=== PATIENT | female | born 1985 | race Two or more races ===

== ENCOUNTER 2016-11-29 20:58 | Observation (INO) | payer SELFPAY ==
--- NOTE | 2016-12-01 22:10 | GHP ---
[f rep st] HISTORY AND PHYSICAL DATE OF ADMISSION: 11/29/2016 ADMITTING DIAGNOSIS: 1. Intrauterine at 36 and 6/7 weeks. 2. Decreased movement. 3. Non-reassuring testing. HISTORY OF PRESENT ILLNESS: The patient is a 31-year-old, 1, para 0, at 36 and 6 weeks with an estimated due date 12/23/2016 by last menstrual period and confirmed by a first-trimester ultrasound. The patient was at her routine visit today in the office of [facility] and was complaining of decreased movement. She was put on the NST and a nonreactive strip was noted. The patient then underwent a biophysical profile and got a 4/8. Patient was sent to labor and delivery for prolonged monitoring. The patient states there is good movement here on the deck but notes that movement is different than what it was a few weeks ago. Denies any leakage of fluid or vaginal bleeding. Denies any belly pain, cramping or contractions. The patient has care at [facility] and is a late transfer in 3rd trimester. She just moved here from [place]. is uncomplicated. The patient did receive Tdap. GBS culture is pending at this time. PAST OBSTETRICAL HISTORY: Patient is a primigravida. GYNECOLOGIC HISTORY: Age of menarche 12. Cycles every 28 days, 5-6 days. The patient denies any history of abnormal Pap smears or any exposure to sexually transmitted diseases. GC, chlamydia cultures were negative in November 2016. PAST MEDICAL HISTORY: 1. Childhood asthma. 2. Migraine headaches. PAST SURGICAL HISTORY: None. FAMILY HISTORY: Noncontributory. SOCIAL HISTORY: The patient is single. She denies any alcohol, tobacco, or illicit drug use. HOME MEDS: Include vitamins, Benadryl. ALLERGIES: No known allergies. REVIEW OF SYSTEMS: A 10-point review of systems is negative. Pertinent positives noted in History of Present Illness. LABS: I do not have her record here so labs are unavailable at this time. PHYSICAL EXAMINATION: VITAL SIGNS: On admission, vital signs are stable. Patient is afebrile. GENERAL: Well-nourished well-developed female. Alert, oriented x3. No apparent distress. CARDIOVASCULAR: Regular rate and rhythm. LUNGS: Clear to auscultation bilaterally. ABDOMEN: Gravid, soft, nontender, nondistended. EXTREMITIES: Normal to inspection without calf tenderness or edema. PELVIC: Deferred. heart tones are Category 1 tracing with a baseline of 140 beats per minute. Positive accelerations. No decelerations. Moderate variability. On [place], there was noted to be some irritability. No contractions. ASSESSMENT/PLAN: Patient is a 31-year-old, 1, para 0, at 36 and 6 weeks who presents with decreased movement, non-reassuring testing. 1. Admit to Labor and Delivery for observation. 2. Prolonged monitoring. NST here is reactive, Category 1 tracing. 3. Will repeat biophysical profile in a.m. 12/02 along with an RAZ fluid check. 4. Ambien as needed for sleep. 5. GBS culture is pending. /[id number]/MODL MTDD
== END 2016-11-29 21:59 | disposition home or self-care (01) ==
LOC: FLD 20:58
PROVIDERS: ADMIT Obstetrics & Gynecology; ATTEND Obstetrics & Gynecology
DX: O36.8130 Decreased fetal movements, third trimester, not applicable or unspecified (principal); Z3A.36 36 weeks gestation of pregnancy
CPT/HCPCS: G0378

== ENCOUNTER 2016-12-01 15:05 | Observation (INO) | payer SELFPAY ==
[2016-12-01] MEDS ORDERED: LR 1,000 ML IV ONE (15:30)
[2016-12-01] MEDS ORDERED: LR 1,000 ML IV SCH (16:30)
[2016-12-01] MEDS ORDERED: ZOLPIDEM TARTRATE 5 MG TAB PO ONE (21:25)
--- NOTE | 2016-12-01 21:43 | OBDEL ---
Data Ford ADILENE: 12/23/16 Gestational Age: 36 week(s) and 6 day(s)
--- NOTE | 2016-12-02 14:13 | GHP ---
[f rep st] HISTORY AND PHYSICAL DATE OF ADMISSION: 12/01/2016 The patient is discharged after an observation admission. SUMMARY OF HOSPITAL ADMISSION: The patient is a 31-year-old, G1, P0, at 37 weeks gestation with an estimated due date of 12/23; who was observed on labor and delivery due to decreased movement. The patient has had her care in [facility] throughout the and has been uncomplicated . She moved to [place] 3 weeks ago and began care with [facility]. The patient has notic ed decreased movement and was evaluated on 11/29 and felt to be reassuring; however, continues to have decreased movement and was seen at the office on 12/01 with a reactive NST. However, she was sent to labor and delivery for prolonged monitoring. The patient had a reassuring bedside biophysical profile in the office on 12/01; however, a formal biophysical profile [facility] for reassurance. The continuous monitoring for several hours on 12/01 showed c ategory 1 tracing with no signs of deceleration. The patient has not felt any contractions and not had any vaginal bleeding. The patient does state she feels movement several times a day; however, n ot the recommended 10 times in 2 hours. The patient has had no leakage of fluid or abdominal tender ness. The patient reports that she does not hydrate much and has not increased hydration since her move from [facility]. She reports possibly 1 L of fluids a day. CARE: The patient has only recently been seen by [facility] and currently recor ds are not available. The patient has reported that all laboratory testing has been normal. PAST MEDICAL HISTORY: The patient denies any chronic medical illnesses. PAST SURGICAL HISTORY: Patient had breast augmentation in 2010, but had difficulty with the implant s and had to have a revision and replacement in 2011. These were done in [facility]. ALLERGIES: The patient has anaphylactic reaction with respiratory distress with nonsteroidal anti-i nflammatory medications. CURRENT MEDICATIONS: None. The patient is advised to begin a vitamin. SOCIAL HISTORY: The patient has moved here to deliver here in [place], as her brother lives here. The patient is a nonsmoker. No alcohol or marijuana use. No IV drug abuse. PHYSICAL EXAMINATION: The patient was admitted for observation on 12/01. The patient has maintaine d normal blood pressures and has been afebrile throughout the hospital stay. See nursing documentat ion for full details. The patient was continuously monitored on 12/01 for many hours and showed category 1 tracing in the 130s with good variability and accelerations with no decelerations. Rare contractions were noted. The patient has had an NST this morning, that continues to show a reactive, reassuring pattern with no decelerations. The patient had a biophysical profile performed, which shows 8/ with great amnio tic fluid of 12.5 cm. ASSESSMENT AND PLAN: Intrauterine at 37 weeks gestation with decreased movement, bu t with all normal surveillance, the baby is reassuring. Possibly an effect due to dehydration in th e patient. Strongly suggest the patient to get at least 2 L, but even better to get 2.5 L a day, an d stressed fluids here at this altitude and dry climate. The patient is advised to follow up on Sun or Sunday for an NST if the baby continues to have less than 10 movements in 2 hours. If the b jayro is perceived to be moving better with increased hydration, then she can follow up at the end of next week. The patient understands the plan. The patient is discharged home on 12/02 to follow up at [facility]. /[id number]/MODL
== END 2016-12-02 14:30 | disposition home or self-care (01) ==
LOC: FLD 15:05
PROVIDERS: ADMIT Obstetrics & Gynecology; ATTEND Obstetrics & Gynecology
DX: O36.8130 Decreased fetal movements, third trimester, not applicable or unspecified (principal); Z3A.37 37 weeks gestation of pregnancy
CPT/HCPCS: G0378

== ENCOUNTER 2016-12-21 06:00 | Inpatient (IN) | payer SELFPAY ==
[2016-12-21] MEDS ORDERED: TERBUTALINE SULFATE 1 MG/ML VIAL IV PRN (07:24)
[2016-12-21] MEDS ORDERED: OXYTOCIN/RINGERS LACTATE 1,000 ML IV PRN (07:24)
[2016-12-21] MEDS ORDERED: OLIVE OIL 118 ML BTL MISC PRN (07:24)
[2016-12-21] MEDS ORDERED: EPSOM SALT 454 GM TP PRN (07:24)
[2016-12-21] MEDS ORDERED: LR 1,000 ML IV PRN (07:24)
[2016-12-21] MEDS ORDERED: LR 500 ML IV PRN (07:36)
[2016-12-21] MEDS ORDERED: OXYTOCIN/LR *STANDARD DOSE PROTOCOL IV SCH (08:00)
[2016-12-21] MEDS ORDERED: OXYTOCIN/RINGERS LACTATE 500 ML IV SCH (08:00)
[2016-12-21 08:17] LABS: % IMMATURE GRANULYOCYTES 0.3 % (0.0-1.1); ABSOLUTE IMMATURE GRANULOCYTES 0.03 10^3/uL (0.00-0.10); ADD DIFF? NO; ADD MORPH? NO; ADD SCAN? NO; ATYPICAL LYMPHOCYTE FLAG 10 (0-99); FRAGMENT RBC FLAG 0 (0-99); HEMATOCRIT 35.1 % (38.0-47.0); HEMOGLOBIN 11.9 g/dL (12.6-16.3); LEFT SHIFT FLG 0 (0-99); LIPEMIA HEMOLYSIS FLAG 90 (0-99); MEAN CELL HEMOGLOBIN 28.6 pg (27.9-34.1); MEAN CELL HEMOGLOBIN CONCENTR. 33.9 g/dL (32.4-36.7); MEAN CELL VOLUME 84.4 fL (81.5-99.8); MEAN PLATELET VOLUME 9.9 fL (8.7-11.7); PLATELET CLUMPS FLAG 10 (0-99); PLATELET COUNT 242 10^3/uL (150-400); RED BLOOD CELL COUNT 4.16 10^6/uL (4.18-5.33); RED CELL DISTRIBUTION WIDTH 13.2 % (11.5-15.2)
--- NOTE | 2016-12-21 10:37 | PDGENHP ---
History and Physical - Chief Complaint 31yo with IUP @ 39-5wks that presents to L&D for elective IOL - History of Present Illness 31yo with IUP @39-5wks that presents to L&D for elective IOL. She denies any contractions, LOF, VB. She reports +FM History Information - Allergies/Home Medication List Allergies/Adverse Reactions: NSAIDS (Non-Steroidal Anti-Inflamma Allergy (Verified 12/02/16 13:26) Wheezing I have personally reviewed and updated: family history, medical history, social history, surgical history - Past Medical History no pertinent PMH - Surgical History Reports: no pertinent surgical hx - Social History Smoking Status: Never smoked Alcohol Use: None Drug Use: None Review of Systems Review of Systems: ROS: 10pt was reviewed & negative except for what was stated in HPI & below Constitutional: Reports: no symptoms EENMT: Reports: no symptoms Cardiac: Reports: no symptoms Respiratory: Reports: no symptoms Gastrointestinal: Reports: no symptoms Genitourinary: Reports: no symptoms Muscolosketal: Reports: no symptoms Skin: Reports: no symptoms Neurological: Reports: no symptoms Physical Exam Physical Exam: Constitutional: no apparent distress, appears nourished Eyes: EOMI Ears, Nose, Mouth, Throat: moist mucous membranes, hearing normal, ears appear normal Cardiovascular: regular rate and rhythym, no murmur, rub, or gallop Respiratory: no respiratory distress, no rales or rhonchi Gastrointestinal: soft, non-tender abdomen Genitourinary: no bladder fullness Skin: warm, normal color Musculoskeletal: full muscle strength Neurologic: AAOx3 Psychiatric: interacting appropriately, not anxious Lab Data & Imaging Review 12/21/16 07:55 WBC 10.58 10^3/uL (3.80-9.50) H 12/21/16 07:55 RBC 4.16 10^6/uL (4.18-5.33) L 12/21/16 07:55 Hgb 11.9 g/dL (12.6-16.3) L 12/21/16 07:55 Hct 35.1 % (38.0-47.0) L 12/21/16 07:55 MCV 84.4 fL (81.5-99.8) 12/21/16 07:55 MCH 28.6 pg (27.9-34.1) 12/21/16 07:55 MCHC 33.9 g/dL (32.4-36.7) 12/21/16 07:55 RDW 13.2 % (11.5-15.2) 12/21/16 07:55 Plt Count 242 10^3/uL (150-400) 12/21/16 07:55 MPV 9.9 fL (8.7-11.7) 12/21/16 07:55 Neut % (Auto) 70.7 % (39.3-74.2) 12/21/16 07:55 Lymph % (Auto) 20.6 % (15.0-45.0) 12/21/16 07:55 [place] % (Auto) 7.5 % (4.5-13.0) 12/21/16 07:55 Eos % (Auto) 0.4 % (0.6-7.6) L 12/21/16 07:55 Baso % (Auto) 0.5 % (0.3-1.7) 12/21/16 07:55 Nucleat RBC Rel Count 0.0 % (0.0-0.2) 12/21/16 07:55 Absolute Neuts (auto) 7.49 10^3/uL (1.70-6.50) H 12/21/16 07:55 Absolute Lymphs (auto) 2.18 10^3/uL (1.00-3.00) 12/21/16 07:55 Absolute Monos (auto) 0.79 10^3/uL (0.30-0.80) 12/21/16 07:55 Absolute Eos (auto) 0.04 10^3/uL (0.03-0.40) 12/21/16 07:55 Absolute Basos (auto) 0.05 10^3/uL (0.02-0.10) 12/21/16 07:55 Absolute Nucleated RBC 0.00 10^3/uL (0-0.01) 12/21/16 07:55 Immature Gran % 0.3 % (0.0-1.1) 12/21/16 07:55 Immature Gran # 0.03 10^3/uL (0.00-0.10) 12/21/16 07:55 Patient ABO/Rh AB POSITIVE 12/21/16 07:55 Antibody Screen NEGATIVE 12/21/16 07:55 Assessment & Plan Assessment: [id number] with IUP@ 39-5wks GBS Neg Cat 1 FHR Tracing Elective IOL Plan: Admit to L&D pitocin/AROM pain management PRN anticipate
[2016-12-21] MEDS ORDERED: TERBUTALINE SULFATE 1 MG/ML VIAL ONE (12:25)
[2016-12-21] MEDS ORDERED: AMMONIA AROMATIC 1 EACH AMP IH ONE (12:25)
[2016-12-21] MEDS ORDERED: OXYTOCIN 10 UNIT/ML VIAL ONE (12:25)
[2016-12-21] MEDS ORDERED: LIDOCAINE 1% 300 MG/30 ML SDV ONE (12:25)
[2016-12-21] MEDS ORDERED: OLIVE OIL 118 ML BTL ONE (12:25)
[2016-12-21] MEDS ORDERED: MISOPROSTOL 200 MCG TAB ONE (12:26)
[2016-12-21] MEDS ORDERED: fentaNYL 100 MCG/2 ML INJ ONE (16:57)
[2016-12-21] MEDS ORDERED: fentaNYL 2MCG/ML/BUP 0.1% RTU 100 ML BAG EP ONE (16:58)
[2016-12-21] MEDS ORDERED: BUPIVACAINE 0.25% 30 ML SDV ONE (16:58)
[2016-12-21] MEDS ORDERED: PHENYLEPHRINE HCL 100 MCG/ML SYR ONE (16:58)
[2016-12-21] MEDS ORDERED: ONDANSETRON 4 MG/2 ML VIAL IVP PRN (18:12)
[2016-12-21] MEDS ORDERED: NALOXONE HCL 0.4 MG/ML INJ IVP PRN (18:12)
[2016-12-21] MEDS ORDERED: METOCLOPRAMIDE 10 MG/2 ML VIAL IVP PRN (18:12)
[2016-12-21] MEDS ORDERED: PHENYLEPHRINE HCL 100 MCG/ML SYR IVP PRN (18:12)
--- NOTE | 2016-12-21 18:13 | PREANESOB ---
Obstetric Pre-Anesthesia Info - General Info : 1 Para: 0 - Labor Status Indications for Labor Analgesia: Pain Control Labor Epidural: Proposed Anesthesia Allergies/Adverse Reactions: Allergy/AdvReac Type Severity Reaction Status Date / Time NSAIDS (Non-Steroidal Allergy Wheezing Verified 12/02/16 13:26 Anti-Inflamma Visit Medications: Generic Name Dose Route Start Last Admin Trade Name Freana lilia PRN Reason Stop Dose Admin Lactated Ringer's 1,000 mls @ 0 mls/hr 12/21/16 07:24 12/21/16 08:27 Lr IV 06/19/17 07:23 1,000 mls PRN PRN Administration SEE PROTOCOL CONDITIONS Protocol Per Protocol Oxytocin/Lactated Ringer's 1,000 mls @ 150 mls/hr 12/21/16 07:24 Pitocin 20 Units/Lr (Premix) IV PRN PRN Post- bleeding Lactated Ringer's 500 mls @ 500 mls/hr 12/21/16 07:36 Lr IV PRN PRN Maternal Hypotension Oxytocin 30 unit/ Lactated 503 mls @ 0 mls/hr 12/21/16 08:00 12/21/16 08:27 Ringer's IV 06/19/17 07:59 503 mls CONT JAMES Administration Protocol Per Protocol Lactated Ringer's 500 mls @ 0 mls/hr 12/21/16 18:30 Lr IV 06/19/17 18:29 CONT JAMES As Directed Magnesium Sulfate 454 gm 12/21/16 07:24 Epsom Salt TP 06/19/17 07:23 Q1H PRN perineal discomfort [place] Oil 118 ml 12/21/16 07:24 Sweet Oil MISC 06/19/17 07:23 ONCE PRN perineal massage Terbutaline Sulfate 0.25 mg 12/21/16 07:24 Brethine IV 06/19/17 07:23 ONCE PRN Tachysystole Discontinued Medications Generic Name Dose Route Start Last Admin Trade Name Freq PRN Reason Stop Dose Admin Ammonia (Aromatic Spirit) Confirm 12/21/16 12:25 Ammonia Aromatic Administered 12/21/16 12:26 Dose 1 each IH .STK-MED ONE Bupivacaine HCl Confirm 12/21/16 16:58 Sensorcaine 0.25% Sdv Administered 12/21/16 16:59 Dose 30 ml .ROUTE .STK-MED ONE Ephedrine Sulfate Confirm 12/21/16 12:25 Ephedrine Sulfate Administered 12/21/16 12:26 Dose 50 mg .ROUTE .STK-MED ONE Fentanyl Confirm 12/21/16 16:57 Sublimaze Administered 12/21/16 16:58 Dose 100 mcg .ROUTE .STK-MED ONE Fentanyl/Bupivacaine HCl Confirm 12/21/16 16:58 Fentanyl/Bupivacaine/Ns 2 Mcg/Ml 0.1% (Premix Administered 12/21/16 16:59 Dose 100 ml EP .STK-MED ONE Lidocaine HCl Confirm 12/21/16 12:25 Lidocaine Hcl 1% Administered 12/21/16 12:26 Dose 300 mg .ROUTE .STK-MED ONE Misoprostol Confirm 12/21/16 12:26 Cytotec Administered 12/21/16 12:27 Dose 800 mcg .ROUTE .STK-MED ONE [place] Oil Confirm 12/21/16 12:25 Sweet Oil Administered 12/21/16 12:26 Dose 118 ml .ROUTE .STK-MED ONE Oxytocin Confirm 12/21/16 12:25 Pitocin Administered 12/21/16 12:26 Dose 40 unit .ROUTE .STK-MED ONE Phenylephrine HCl Confirm 12/21/16 16:58 Neosynephrine Administered 12/21/16 16:59 Dose 1,000 mcg .ROUTE .STK-MED ONE Terbutaline Sulfate Confirm 12/21/16 12:25 Brethine Administered 12/21/16 12:26 Dose 1 mg .ROUTE .STK-MED ONE - Focused Exam Height/Weight (Nursing): Height 162 cm Weight 74.389 kg Labs: 12/21/16 07:55 Patient ABO/Rh AB POSITIVE 12/21/16 07:55
--- NOTE | 2016-12-21 18:14 | POSTANESTH ---
Post Anesthetic Evaluation Respiratory Status: Normal, Stable Level of Consciousness/Mental Status: Can Participate in Eval Pain Control: Adequate, Prn Tx Ordered Nausea/Vomiting Control: Adequate, Prn Tx Ordered Complications Possibly Related to Anesthesia: None Noted
--- NOTE | 2016-12-21 18:15 | PDANEPAE ---
ANE History of Present Illness 31 year old woman for labor epidural. Otherwise healthy. ANE Past Medical History - Cardiovascular History Hx Hypertension: No Hx Arrhythmias: No Hx Chest Pain: No Hx Coronary Artery / Peripheral Vascular Disease: No Hx CHF / Valvular Disease: No Hx Palpitations: No - Pulmonary History Hx COPD: No Hx Asthma/Reactive Airway Disease: No Hx Recent Upper Respiratory Infection: No Hx Oxygen in Use at Home: No Hx Sleep Apnea: No ANE Review of Systems Review of Systems: ANE Patient History - Allergies Allergies/Adverse Reactions: NSAIDS (Non-Steroidal Anti-Inflamma Allergy (Verified 12/02/16 13:26) Wheezing - Smoking Hx Smoking Status: Never smoked - Alcohol Use Alcohol Use: None ANE Labs/Vital Signs - Labs Result Diagrams: 12/21/16 07:55 - Vital Signs Height: 162 cm Weight: 74.389 kg ANE Physical Exam - Airway Mallampati Score: Class 1 Mouth exam: normal dental/mouth exam - Pulmonary Pulmonary: no respiratory distress - Cardiovascular Cardiovascular: regular rate and rhythym - ASA Status ASA Status: I ANE Anesthesia Plan Anesthesia Plan: epidural
[2016-12-21] MEDS ORDERED: LR 500 ML IV SCH (18:30)
[2016-12-21] MEDS ORDERED: fentaNYL 2MCG/ML/BUP 0.1% RTU 100 ML EP SCH (18:30)
[2016-12-21] MEDS ORDERED: LIDOCAINE 2% JELLY 5 ML TUBE TP ONE (21:06)
--- NOTE | 2016-12-21 21:21 | OBPROG ---
Labor Progress Note Assessment/Plan: Assessment: 31 y/o @ 39 weeks elective IOL. Plan: Good cervical progression now on pitocin. Will give lidocaine jelly to urethra to help discomfort from the manzano. Will re check 1- 2 hours. status is reassuring. 12/21/16 21:22 Subjective/Intrapartum Course: 12/21/16 21:17 Pt is feeling some discomfort in the urethra from her manzano today. She has some pelvic pressure. Objective: 12/21/16 07:55 Patient ABO/Rh AB POSITIVE 12/21/16 07:55 - SVE Dilation (cm): 7 Effacement (%): 90 Station: 0 Membranes: AROM Amniotic Fluid Color: Clear - Contraction Pattern Assessment Current Contraction Pattern: Regular (Q 2-3) - FHR Assessment Ford FHR (bpm): 130 FHR Pattern Variability: Moderate FHR Category: 1 Oxytocin Orders Assessment - Pre-Induction/Augmentation Assessment Gestational Age: 39 week(s) and 5 day(s) ICD10 Worksheet Patient Problems: Problems Problem Status Onset Decreased movement Acute
[2016-12-21] MEDS ORDERED: ACETAMINOPHEN 500 MG TAB PO PRN (22:06)
[2016-12-21] MEDS ORDERED: FAMOTIDINE 20 MG/NACL 50 ML IV ONE (22:08)
[2016-12-21] MEDS ORDERED: FAMOTIDINE 20 MG/2 ML SDV IVP ONE (22:15)
[2016-12-22] MEDS ORDERED: SIMETHICONE 80 MG TAB CHEW PO PRN (00:44)
[2016-12-22] MEDS ORDERED: HYDROCORTISONE 0.5% CREAM TP PRN (00:44)
--- NOTE | 2016-12-22 00:48 | OBDEL ---
Info Type: Vaginal Presentation at Delivery: Vertex L&D Analgesia/Anesthesia Type: Epidural GBS+: No Intrapartum Medications: Generic Name Dose Route Start Last Admin Trade Name Freq PRN Reason Stop Dose Admin Acetaminophen 1,000 mg 12/21/16 22:06 12/21/16 22:19 Tylenol PO 06/19/17 22:05 1,000 mg Q6HRS PRN Administration Pain, Mild/Fever, Can Take PO Lactated Ringer's 1,000 mls @ 0 mls/hr 12/21/16 07:24 12/21/16 08:27 Lr IV 06/19/17 07:23 1,000 mls PRN PRN Administration SEE PROTOCOL CONDITIONS Protocol Per Protocol Oxytocin 30 unit/ Lactated 503 mls @ 0 mls/hr 12/21/16 08:00 12/21/16 08:27 Ringer's IV 06/19/17 07:59 503 mls CONT JAMES Administration Protocol Per Protocol Discontinued Medications Generic Name Dose Route Start Last Admin Trade Name Freq PRN Reason Stop Dose Admin Famotidine 20 mg 12/21/16 22:15 12/21/16 22:19 Pepcid IVP 12/21/16 22:16 20 mg ONCE ONE Administration Lidocaine 1 tory 12/21/16 21:06 12/21/16 21:33 Lidocaine 2% Jelly TP 12/21/16 21:07 1 tory ONCE ONE Administration - Hospital Course Intrapartum: 12/21/16 21:17 Pt is feeling some discomfort in the urethra from her manzano today. She has some pelvic pressure. 12/22/16 00:45 pt progressed appropriately; complete and pushed for approx 1 hour; maternal temp noted 100.8 prior to delivery and 101 post delivery; abx initiated. Indications for Delivery: Elective Vaginal Delivery - Delivery Provider Delivery Physician/CNM: Marcella Hartman Proctoring Provider: Hilda Stock - Labor and Delivery Onset of Contractions Date: 12/21/16 Onset of Contractions Time: 15:17 Onset of Contractions Type: Induced Rupture of Membranes Date: 12/21/16 Rupture of Membranes Time: 15:17 Rupture of Membranes Type: Artificial Amniotic Fluid Color: Clear Dilation Complete Date: 12/21/16 Dilation Complete Time: 23:00 Placenta Delivery Date: 12/22/16 Placenta Delivery Time: 00:25 Total Hours of Labor: 9 Non-surgical Procedures: Amniotomy Vaginal Sponge Count Correct: Yes Vaginal Needle Count Correct: Yes Vaginal Sweep Performed: No EBL: 250 Delivery Events: None - Medications Labor Augmentation/Induction Methods Used: Pitocin Labor Augmentation/Induction Indication: Elective Tyler Data Ford Delivery Date: 12/22/16 Delivery Time: 00:15 ADILENE: 12/23/16 Gestational Age: 39 week(s) and 6 day(s) Sex of Infant: Female Score (1 Min): 8 Score (5 Min): 9 ICD10 Worksheet Patient Problems: Problems Problem Status Onset (spontaneous vaginal delivery) Acute Decreased movement Acute - ICD10 Problem Qualifiers (1) (spontaneous vaginal delivery)
[2016-12-22] MEDS: ceFAZolin 2 GM/DEXTROSE 100 ML IV SCH ×4 (01:07→21:11)
[2016-12-22] MEDS: HYDROCODONE/APAP 5/325 TAB PO PRN ×5 (03:11→21:11)
--- NOTE | 2016-12-22 09:07 | OBPP ---
Progress Note Assessment/Plan: Assessment: 1) s/p PPD #0.5 - pt is stable 2) Maternal fever - resolved, on abx 3) Anemia - pt is asymptomatic Plan: Continue routine pp care Pt is afebrile at this time Will start iron Plan for d/c home in am 12/2312/22/16 09:12 Subjective/ Course: Pt seen and examined. Doing well, she is sore. Relief with [place]. Pt is OOB, eleazar regular diet, voiding and passing flatus. No BM. Mod lochia. BF well so far. Objective: 12/21/16 07:55 Patient ABO/Rh AB POSITIVE 12/21/16 07:55 Temp Pulse Resp BP Pulse Ox 36.8 C 85 18 95/55 L 95 12/22/16 04:12/22/16 04:12/22/16 04:12/22/16 04:12/22/16 02:48 Uterine Position/Fundal Height: Umbilicus -2 Uterine Tone: Firm Physical Exam - Physical Exam Respiratory: lungs clear, normal breath sounds Cardiac/Chest: regular rate, rhythm Abdomen: normal bowel sounds, non-tender, soft, flatus (+) Extremities: non-tender, normal inspection Skin: normal color, warm/dry Neuro/Psych: alert, normal mood/affect, oriented x 3
[2016-12-22] MEDS: IRON POLYSAC/IRON HEME 28 MG TAB PO SCH ×2 (11:47→21:11)
[2016-12-22] MEDS: DOCUSATE SODIUM 100 MG CAP PO PRN ×2 (11:47→21:11)
[2016-12-22] MEDS ORDERED: FLU VACC QS 2017-18 (3YR+)/PF 0.5 ML SYR (FLUARIX QUAD) IM ONE (12:01)
[2016-12-22] MEDS ORDERED: MEASLES,MUMPS&RUBELLA VACC/PF 0.5 ML VIAL SC ONE (12:26)
[2016-12-23] MEDS: ceFAZolin 2 GM/DEXTROSE 100 ML IV SCH (01:03)
[2016-12-23] MEDS: HYDROCODONE/APAP 5/325 TAB PO PRN ×3 (05:01→09:40)
[2016-12-23] MEDS: IRON POLYSAC/IRON HEME 28 MG TAB PO SCH (08:43)
[2016-12-23] MEDS: DOCUSATE SODIUM 100 MG CAP PO PRN (08:43)
[2016-12-23 10:34] VITALS: BP 100/60; PULSE 82; RESP 21; TEMP 98.8; O2SAT 94
--- NOTE | 2016-12-23 11:49 | OBPP ---
Progress Note Assessment/Plan: Assessment: ppd# 2 s/p anemia pain controlled with norco (nsaid allergy) breast feeding Plan: iron routine post care and discharge instructions norco rx 12/23/16 11:47 Subjective/ Course: Pt seen and examined. Doing well, she is sore. Relief with [place]. Pt is OOB, eleazar regular diet, voiding and passing flatus. No BM. Mod lochia. BF well so far. 12/23/16 11:48 patient is doing well. pain is well controlled with norco. passing gas. working on breast feeding. normal lochia. denies headache and changes in vision. ready to go home. Objective: 12/21/16 07:55 Patient ABO/Rh AB POSITIVE 12/21/16 07:55 Temp Pulse Resp BP Pulse Ox 37.1 C 82 21 H 100/60 94 12/23/16 10:00 12/23/16 10:00 12/23/16 10:00 12/23/16 10:00 12/23/16 10:00 Uterine Position/Fundal Height: Umbilicus -2 Physical Exam - Physical Exam Neck: non-tender, full range of motion, supple Respiratory: chest non-tender, lungs clear, normal breath sounds Cardiac/Chest: normal peripheral pulses, regular rate, rhythm Abdomen: normal bowel sounds, non-tender Extremities: normal range of motion, non-tender, normal inspection, normal capillary refill Skin: normal color, warm/dry Neuro/Psych: no motor/sensory deficits, alert, normal mood/affect, oriented x 3
--- NOTE | 2016-12-23 11:55 | OBGCSDC ---
General Delivery Information - General Info : 1 Para: 1 Abortions: 0 Type: Vaginal L&D Analgesia/Anesthesia Type: Epidural Admission Date: 12/21/16 Labs: Patient ABO/Rh AB POSITIVE 12/21/16 07:55 Hct 35.1 % (38.0-47.0) L 12/21/16 07:55 - Hospital Course Antepartum: 12/23/16 11:[address] [facility]. transfer to [facility] 35 weeks. uncomplicated . desired IOL at 39+ week because family was in town and about to leave Intrapartum: 12/21/16 21:17 Pt is feeling some discomfort in the urethra from her manzano today. She has some pelvic pressure. 12/22/16 00:45 pt progressed appropriately; complete and pushed for approx 1 hour; maternal temp noted 100.8 prior to delivery and 101 post delivery; abx initiated. : Pt seen and examined. Doing well, she is sore. Relief with [place]. Pt is OOB, eleazar regular diet, voiding and passing flatus. No BM. Mod lochia. BF well so far. 12/23/16 11:48 patient is doing well. pain is well controlled with norco. passing gas. working on breast feeding. normal lochia. denies headache and changes in vision. ready to go home. Vaginal - Delivery Provider Delivery Physician/CNM: Marcella Hartman - Diagnosis Labor: Induced Rupture of Membranes Type: Artificial Amniotic Fluid Color: Clear Delivery Events: None - Procedures Non-surgical Procedures: Amniotomy - Delivery Non-surgical Procedures: Amniotomy EBL: 250 Data Ford Delivery Date: 12/22/16 Delivery Time: 00:15 ADILENE: 12/23/16 Gestational Age: 40 week(s) and 0 day(s) Sex of : Female Charlotte Weight (gm): 3428 g Score (1 Min): 8 Score (5 Min): 9 Discharge Information - Discharge Information Prescriptions: Hydrocodone/APAP 5/325 [[place] 5/325 (*)] 1 - 2 tab PO Q4HRS PRN #25 tab PRN Reason: Pain, Moderate Condition: Good Instruction/Follow Up: Four Weeks, Six Weeks
== END 2016-12-23 14:05 | disposition home or self-care (01) | DRG 775 ==
LOC: FLD 06:45 → FOB 12-22 03:41
PROVIDERS: ADMIT Obstetrics & Gynecology; ATTEND Obstetrics & Gynecology
PROC: 10907ZC Drainage of Amniotic Fluid, Therapeutic from Products of Conception, Via Natural or Artificial Opening (ICD-10-PCS; 2016-12-21)
PROC: 3E033VJ Introduction of Other Hormone into Peripheral Vein, Percutaneous Approach (ICD-10-PCS; 2016-12-21)
PROC: 10E0XZZ Delivery of Products of Conception, External Approach (ICD-10-PCS; principal; 2016-12-22)
DX: O90.81 Anemia of the puerperium (principal); Z37.0 Single live birth; Z3A.39 39 weeks gestation of pregnancy; Z23 Encounter for immunization
CPT/HCPCS: G0008; J0690; J2370; J2590; J3010; J3105